=== PATIENT | male | born 1945 | race Caucasian/White ===

== ENCOUNTER 2017-01-27 11:05 | Emergency (ER) | payer MEDICARE, OTHER ==
[~2017-01-27 11:05] MED LIST: ALEVE220 MG PO; ASAB PO; AVODART PO; B12250T PO; CALTRA600D PO; COREG12 PO; COZ50 PO; FISH-EPA1000 MG PO; PRILO PO; PROSCAR5 PO; VASOTEC10 PO; VITAMIN D31000 UNIT PO; ZOCOR20 PO
== END 2017-01-27 11:12 | disposition home or self-care (01) ==
LOC: ER 11:05
PROC: 0HQGXZZ Repair Left Hand Skin, External Approach (ICD-10-PCS; principal; 2017-01-27)
DX: S61.012A Laceration without foreign body of left thumb without damage to nail, initial encounter (principal); I10 Essential (primary) hypertension; Z88.1 Allergy status to other antibiotic agents; Z79.82 Long term (current) use of aspirin; Y28.8XXA Contact with other sharp object, undetermined intent, initial encounter
CPT/HCPCS: 99283